=== PATIENT | female | born 2000 | race African-American/Black ===

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

== ENCOUNTER 2018-07-15 02:09 | Emergency (ER) | payer MEDICAID ==
--- NOTE | 2018-07-15 02:40 | ER Document Report ---
ED General - General Chief Complaint: OB Problem (<20wks) Stated Complaint: VAGINAL BLEEDING Time Seen by Provider: 07/15/18 02:40 Primary Care Provider: DORY ACUÑA MD [COMMUNITY BASED STAFF] - Follow up in 3-5 days Notes: Patient is a 18-year-old female, G1, P0, approximately 8 weeks gravid that presents to the emergency department for chief complaint of vaginal bleeding. Patient states she had an episode earlier this evening, when she had some dark vaginal bleeding, she has not had any since then, and she is gone to the bathroom twice, without any further bleeding. She has had some nausea but no vomiting. She is otherwise been feeling well, denies any dysuria, hematuria, fevers, chills, chest pain, shortness of breath or difficulty breathing. Denies any pelvic pain or abdominal cramping. Past Medical History: Denies chronic medical conditions Past Surgical History: Denies surgical history Social History: Denies tobacco, alcohol or drug use. Family History: Reviewed and noncontributory for presenting illness Allergies: Reviewed, see documented allergy list. REVIEW OF SYSTEMS: Other than noted above, the 12 point review of systems was reviewed with the patient and were negative, all pertinent findings are included in the HPI. PHYSICAL EXAMINATION: Vital signs reviewed, nursing noted reviewed. GENERAL: Well-appearing, well-nourished and in no acute distress. HEAD: Atraumatic, normocephalic. EYES: Eyes appear normal, extraocular movements intact, sclera anicteric, conjunctiva are normal. ENT: nares patent, oropharynx clear without exudates. Moist mucous membranes. NECK: Normal range of motion, supple without lymphadenopathy LUNGS: Breath sounds clear to auscultation bilaterally and equal. No wheezes rales or rhonchi. HEART: Regular rate and rhythm without murmurs ABDOMEN: Soft, nontender, normoactive bowel sounds. No rebound, guarding, or rigidity. No masses appreciated. EXTREMITIES: Nontender, good range of motion, no pitting or edema. NEUROLOGICAL: No focal neurological deficits. Moves all extremities spontaneously Motor and sensory grossly intact on exam. PSYCH: Normal mood, normal affect. SKIN: Warm, Dry, normal turgor, no rashes or lesions noted on exposed skin - Related Data Allergies/Adverse Reactions: red dye Allergy (Verified 07/22/15 09:49) Past Medical History - Social History Smoking Status: Never Smoker Family History: Reviewed & Not Pertinent Pulmonary Medical History: Reports: Hx Asthma Renal/ Medical History: Denies: Hx Peritoneal Dialysis Skin Medical History: Reports Hx Eczema Traumatic Medical History: Denies: Hx Fractures - Immunizations Immunizations up to date: Yes Physical Exam - Vital signs Vitals: Temp Pulse Resp BP Pulse Ox 97.6 F 78 16 130/76 H 100 07/15/18 02:15 07/15/18 02:15 07/15/18 02:15 07/15/18 02:15 07/15/18 02:15 Course - Re-evaluation Re-evalutation: Patient seen and examined vital signs reviewed. Laboratory data and/or imaging were ordered as appropriate for the patient's presenting symptoms and complaint, with consideration of any critical or life threatening conditions that may be associated with their obtained history and exam as noted above. Patient was treated with RhoGam, she tested a negative Results were reviewed when available and demonstrated a negative blood type, ultrasound demonstrated subchorionic hemorrhage, with single live intrauterine , quantitative hCG was obtained and appropriate for stage of gestation. The patient was re-evaluated and was stable, no complaints, no further bleeding Evaluation was most consistent with subchorionic hemorrhage, vaginal bleeding and Results were discussed with the patient at this point, after careful consideration I feel that that patient can be discharged from the emergency department, the patient was educated treatments and reasons to return to the emergency department based on their presumed diagnosis as noted above, they were advised to followup with a primary care physician in 2-3 days. Patient was agreeable to plan of care. *Note is created using voice recognition software and may contain spelling, syntax or grammatical errors. Laboratory 07/15/18 07/15/18 07/15/18 03:10 03:10 03:10 Beta HCG, Quant [id number] H Total Beta HCG POSITIVE Urine Color YELLOW Urine Appearance SLIGHTLY-CLOUDY Urine pH 6.0 Ur Specific [place] 1.011 Urine Protein NEGATIVE Urine Glucose (UA) NEGATIVE Urine Ketones NEGATIVE Urine Blood MODERATE H Urine Nitrite NEGATIVE Urine Bilirubin NEGATIVE Urine Urobilinogen NEGATIVE Ur Leukocyte Esterase NEGATIVE Urine WBC (Auto) 2 Urine RBC (Auto) 1 Squamous Epi Cells Auto 3 Urine Mucus (Auto) RARE Urine Ascorbic Acid NEGATIVE Blood Type A NEGATIVE Antibody Screen NEGATIVE Rhogam Indicated RHOGAM REQUESTED Obstetrics Ultrasound 07/15/18 03:13 IMPRESSION: Living 1st trimester intrauterine gestation. 1.0-cm perigestational hemorrhage. - Vital Signs Vital signs: Temp Pulse Resp BP Pulse Ox 97.6 F 78 16 130/76 H 100 07/15/18 02:15 07/15/18 02:15 07/15/18 02:15 07/15/18 02:15 07/15/18 02:15 - Laboratory Laboratory results interpreted by me: 07/15/18 07/15/18 03:10 03:10 Beta HCG, Quant [id number] H Urine Blood MODERATE H Discharge - Discharge Clinical Impression: Vaginal bleeding affecting early Subchorionic hematoma Qualifiers: Fetus number: single or unspecified fetus Trimester: first trimester Qualified Code(s): O41.8X10 - Other specified disorders of amniotic fluid and membranes, first trimester, not applicable or unspecified Condition: Stable Disposition: HOME, SELF-CARE Instructions: Bleeding During Early ([facility]) Additional Instructions: Please follow-up with your EARLY CHILDHOOD DIRECTOR, at your upcoming appointment, to discuss your results, and any further questions you may have. If you develop further bleeding, particularly if you note having passing clots, please return to the emergency sooner to be reevaluated. Referrals: DORY ACUÑA MD [COMMUNITY BASED STAFF] - Follow up in 3-5 days
[2018-07-15 03:45] LABS: APPEARANCE,URINE SLIGHTLY-CLOUDY; BILIRUBIN,URINE NEGATIVE (NEGATIVE); COLOR,URINE YELLOW; GLUCOSE, URINE NEGATIVE (NEGATIVE); KETONES,URINE NEGATIVE (NEGATIVE); LEUKOCYTE ESTERASE,URINE NEGATIVE (NEGATIVE); NITRITE,URINE NEGATIVE (NEGATIVE); PROTEIN,URINE NEGATIVE (NEGATIVE); URINE SPECIFIC GRAVITY 1.011; UROBILINOGEN,URINE NEGATIVE mg/dL (<2.0)
--- NOTE | 2018-07-15 04:28 | RADIOLOGY REPORT (SQ) ---
EXAM DESCRIPTION: US LESS THAN 14 WEEKS COMPLETED DATE/TME: 07/15/2018 03:13 CLINICAL HISTORY: 18 years Female, vaginal bleeding approx 8wks gravid COMPARISON: None TECHNIQUE: Transvaginal. LIMITATIONS: None. FINDINGS: Living intrauterine fetus measures 8w5d with TEETEE of 02/19/2019. Cardiac activity is 163-bpm. [place]-rump length is 2.0-cm. 0.7 x 1.0 x 0.6 cm subchorionic hemorrhage. 4.0-cm right ovary, nonvisualized left ovary, 3.5 cm cervical length, and no free fluid. IMPRESSION: Living 1st trimester intrauterine gestation. 1.0-cm perigestational hemorrhage.
[2018-07-15 05:10] VITALS: BP 115/77
== END 2018-07-15 05:12 | disposition home or self-care (01) ==
LOC: ER 02:09
DX: O46.91 Antepartum hemorrhage, unspecified, first trimester (principal); O26.891 Other specified pregnancy related conditions, first trimester; R11.0 Nausea; Z3A.08 8 weeks gestation of pregnancy; O99.511 Diseases of the respiratory system complicating pregnancy, first trimester; J45.909 Unspecified asthma, uncomplicated
CPT/HCPCS: 99284; 96372; 86900; 86901; 36415; 87086; 86850; 84702; 81001; 76801; J2790